=== PATIENT | female | born 1935 | race Caucasian/White ===

== ENCOUNTER 2017-06-06 17:09 | Emergency (ER) | payer MEDICARE, BC ==
[2017-06-06 18:09] LABS: BASOPHILS 0.2 % (0-2); EOSINOPHILS 1.3 % (0-7); HEMATOCRIT 30.7 % (36.0-48.0); HEMOGLOBIN 9.5 g/dL (12-16); IMMATURE GRANULOCYTES 0.2 % (0-5); LYMPHOCYTES 14.6 % (15-50); MCH 27.3 pg (26.0-34.0); MCHC 30.9 g/dL (31.0-37.0); MCV 88.2 fL (80.0-100.0); MEAN PLATELET VOLUME 8.5 fL (7.4-10.4); MONOCYTES 6.5 % (2-11); NEUTROPHILS 77.2 % (40-80); PLATELET COUNT 278 10x3/uL (130-400); RBC 3.48 10x6/uL (4.00-5.40); RDW 14.6 % (11.5-14.5); WBC 8.9 10x3/uL (4.8-10.8)
[2017-06-06 18:28] LABS: APTT 28.9 SECONDS (22.8-39.4); INR 0.85 (0.85-1.17); PROTIME 11.4 SECONDS (11.6-15.0)
[2017-06-06 18:35] LABS: ALBUMIN 3.6 g/dL (3.4-5.0); ANION GAP 12.1 mmol/L (8-16); BILIRUBIN - TOTAL 0.9 mg/dL (0.2-1.3); CALCIUM 8.3 mg/dL (8.5-10.1); CARBON DIOXIDE 29.3 mmol/L (21.0-32.0); CREATININE - SERUM 1.1 mg/dL (0.6-1.3); POTASSIUM - SERUM 4.4 mmol/L (3.5-5.1); PROTEIN - SERUM 6.6 g/dL (6.4-8.2)
== END 2017-06-06 21:44 | disposition home or self-care (01) ==
LOC: D.ER 17:09
PROVIDERS: Physician Assistant
DX: H53.2 Diplopia (principal); D64.9 Anemia, unspecified; V86.59XA Driver of other special all-terrain or other off-road motor vehicle injured in nontraffic accident, initial encounter; Y93.89 Activity, other specified; Y92.89 Other specified places as the place of occurrence of the external cause